=== PATIENT | male | born 2000 | race Caucasian/White ===

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

== ENCOUNTER 2024-06-14 07:28 | Emergency (ER) | payer MEDICAID ==
[~2024-06-14] VITALS: Ht 175.3 cm; Wt 72.6 kg
[2024-06-14 07:35] VITALS: BP 145/95; PULSE 75; RESP 18; TEMP 98.8; O2SAT 97
[2024-06-14] MEDS: NACL 0.9% 1,000 ML IV SCH (08:01)
[2024-06-14] MEDS: ONDANSETRON 4 MG/2 ML VIAL IVP ONE ×2 (08:02→09:30)
[2024-06-14] MEDS: FAMOTIDINE 20 MG/2 ML VIAL IVP ONE (08:02)
[2024-06-14 08:18] LABS: APPEARANCE,URINE CLEAR (CLEAR); BILIRUBIN,URINE 1+ (NEGATIVE); BLOOD, URINE NEGATIVE (NEGATIVE); COLOR,URINE YELLOW (YELLOW); LEUKOCYTE ESTERASE ,URINE NEGATIVE (NEGATIVE); NITRITE, URINE NEGATIVE (NEGATIVE); PROTEIN,URINE NEGATIVE (NEGATIVE); UGLUCOSE NEGATIVE (NEGATIVE)
[2024-06-14 08:31] LABS: BACTERIA,URINE FEW /HPF (None Seen); RBC,URINE 0-5 /HPF (0-5); SQUAMOUS EPITHELIAL CELL,UR 0-3 (FEW) /LPF (0-3 (FEW)); WBC,URINE 0-5 /HPF (0-5)
[2024-06-14 08:32] LABS: ICTOTEST NEGATIVE (NEGATIVE)
[2024-06-14 08:42] LABS: BASOPHILS % (AUTO) 0.4 % (0.0-2.0); EOSINOPHILS # (AUTO) 0.1 K/uL (0-0.4); EOSINOPHILS % (AUTO) 0.7 % (0.0-4.0); HEMATOCRIT 53.8 % (36-52); HEMOGLOBIN 18.8 g/dL (12.0-18.0); LYMPHOCYTES # (AUTO) 1.4 K/uL (2.0-11.5); LYMPHOCYTES % (AUTO) 10.7 % (20.5-51.1); MEAN CORPUSCULAR HEMOGLOBIN 30 pg (27-31); MEAN CORPUSCULAR HGB CONC 35 g/dL (33-37); MEAN CORPUSCULAR VOLUME 84.8 fL (80-94); MONOCYTES % (AUTO) 7.8 % (1.7-9.3); NEUTROPHILS # (AUTO) 10.6 K/uL (1.8-7.7); NEUTROPHILS % (AUTO) 80.4 % (42.2-75.2); PLATELET COUNT (AUTO) 344 K/uL (140-450); RED BLOOD CELL COUNT(AUTO) 6.34 MIL/uL (4.20-6.10); RED CELL DISTRIBUTION WIDTH 12.5 % (11.6-13.7); WHITE BLOOD COUNT (AUTO) 13.2 K/uL (4.8-10.8)
[2024-06-14 09:27] LABS: ANION GAP 12.7 (8-16); CALCIUM 9.3 mg/dL (8.5-10.1); CARBON DIOXIDE 31.6 mmol/L (21-32); CREATININE 1.1 mg/dL (0.6-1.3); POTASSIUM 3.3 mmol/L (3.5-5.1)
[2024-06-14] MEDS: NACL 0.9% 1,000 ML IV ONE (09:29)
[2024-06-14 09:33] LABS: ALBUMIN 4.3 g/dL (3.4-5.0); BILIRUBIN,DIRECT 0.3 mg/dL (0.0-0.3); TOTAL BILIRUBIN 1.1 mg/dL (0.0-1.0)
[2024-06-14] MEDS ORDERED: ONDA-188 PO (10:38)
[2024-06-14] MEDS ORDERED: FAMO-92 PO (10:38)
[2024-06-14] MEDS: PROCHLORPERAZINE 10 MG/2 ML VIAL IVP ONE (10:58)
[2024-06-14 11:40] VITALS: BP 116/69; PULSE 77; RESP 18; TEMP 99; O2SAT 98
== END 2024-06-14 11:40 | disposition home or self-care (01) ==
LOC: MED 07:28
DX: K29.70 Gastritis, unspecified, without bleeding (principal); R53.1 Weakness; R03.0 Elevated blood-pressure reading, without diagnosis of hypertension; Z79.899 Other long term (current) drug therapy
CPT/HCPCS: 36415; 80048; 80076; 81001; 83690; 85025; 96361; 96374; 96375; 96376; 99284; J0780; J2405; J3490; J7030

== ENCOUNTER 2024-06-19 08:59 | Emergency (ER) | payer MEDICAID ==
[~2024-06-19] VITALS: Ht 175.3 cm; Wt 68.0 kg
[~2024-06-19 08:59] MED LIST: FAMO-92 PO; ONDA-188 PO
[2024-06-19 09:17] VITALS: BP 117/80; PULSE 88; RESP 18; TEMP 98.1
[2024-06-19] MEDS: NACL 0.9% 1,000 ML IV ONE (09:59)
[2024-06-19] MEDS: ONDANSETRON 4 MG/2 ML VIAL IVP ONE (10:00)
[2024-06-19 10:19] LABS: BASOPHILS % (AUTO) 0.3 % (0.0-2.0); EOSINOPHILS % (AUTO) 0.2 % (0.0-4.0); HEMOGLOBIN 18.9 g/dL (12.0-18.0); LYMPHOCYTES # (AUTO) 1.2 K/uL (2.0-11.5); MEAN CORPUSCULAR HEMOGLOBIN 30 pg (27-31); MEAN CORPUSCULAR HGB CONC 34 g/dL (33-37); MEAN CORPUSCULAR VOLUME 86.4 fL (80-94); MONOCYTES # (AUTO) 0.9 K/uL (0.8-1.0); MONOCYTES % (AUTO) 7.5 % (1.7-9.3); NEUTROPHILS # (AUTO) 10.2 K/uL (1.8-7.7); PLATELET COUNT (AUTO) 345 K/uL (140-450); RED BLOOD CELL COUNT(AUTO) 6.37 MIL/uL (4.20-6.10); RED CELL DISTRIBUTION WIDTH 12.5 % (11.6-13.7); WHITE BLOOD COUNT (AUTO) 12.5 K/uL (4.8-10.8)
[2024-06-19 10:42] LABS: ANION GAP 15.9 (8-16); CALCIUM 9.3 mg/dL (8.5-10.1); CARBON DIOXIDE 28.9 mmol/L (21-32); CREATININE 1.2 mg/dL (0.6-1.3); POTASSIUM 3.8 mmol/L (3.5-5.1)
[2024-06-19 10:49] LABS: ALBUMIN 4.5 g/dL (3.4-5.0); BILIRUBIN,DIRECT 0.2 mg/dL (0.0-0.3); MAGNESIUM 2.3 mg/dL (1.8-2.4); PHOSPHORUS 3.6 mg/dL (2.5-4.9); TOTAL PROTEIN, SERUM 8.4 g/dL (6.4-8.2)
[2024-06-19] MEDS: PROCHLORPERAZINE 10 MG/2 ML VIAL IVP ONE (11:41)
[2024-06-19] MEDS: diphenhydrAMINE 50 MG/ML VIAL IVP ONE (11:44)
[2024-06-19] MEDS ORDERED: METO-485 PO (13:30)
[2024-06-19 13:39] VITALS: BP 104/70; PULSE 85; RESP 16; TEMP 98.1; O2SAT 100
== END 2024-06-19 13:39 | disposition home or self-care (01) ==
LOC: MED 08:59
DX: R11.2 Nausea with vomiting, unspecified (principal); F12.90 Cannabis use, unspecified, uncomplicated; K21.9 Gastro-esophageal reflux disease without esophagitis; Z79.899 Other long term (current) drug therapy
CPT/HCPCS: 36415; 80048; 80076; 83690; 83735; 84100; 85025; 96361; 96374; 96375; 99284; J0780; J1200; J2405; J7030

== ENCOUNTER 2024-06-24 08:36 | Emergency (ER) | payer MEDICAID ==
[~2024-06-24] VITALS: Ht 175.3 cm; Wt 68.0 kg
[~2024-06-24 08:36] MED LIST changes: +METO-485 PO
[2024-06-24 08:40] VITALS: BP 175/73; PULSE 101; RESP 20; TEMP 98.6; O2SAT 99
[2024-06-24 09:08] LABS: APPEARANCE,URINE CLEAR (CLEAR); BILIRUBIN,URINE NEGATIVE (NEGATIVE); BLOOD, URINE NEGATIVE (NEGATIVE); COLOR,URINE YELLOW (YELLOW); LEUKOCYTE ESTERASE ,URINE NEGATIVE (NEGATIVE); NITRITE, URINE NEGATIVE (NEGATIVE); PH,URINE 7.5 (5.0-9.0); PROTEIN,URINE NEGATIVE (NEGATIVE); UGLUCOSE NEGATIVE (NEGATIVE)
[2024-06-24 09:16] VITALS: O2SAT 99
[2024-06-24 09:16] LABS: AMPHETAMINE, URINE NEGATIVE ng/ml (NEG <=1000); BARBITURATE, URINE NEGATIVE ng/ml (NEG <=200); BENZODIAZEPINE, URINE NEGATIVE ng/mL (NEG <=200); CANNABINOID, URINE POSITIVE ng/mL (NEG <=50); COCAINE, URINE NEGATIVE ng/mL (NEG <=300); OPIATE, URINE NEGATIVE ng/mL (NEG <=2000); PHENCYCLIDINE SCREEN,URINE NEGATIVE ng/mL (NEG <=25)
[2024-06-24] MEDS ORDERED: ONDANSETRON 4 MG/2 ML VIAL ONE (09:19)
[2024-06-24] MEDS: ONDANSETRON 4 MG/2 ML VIAL IVP ONE (09:22)
[2024-06-24] MEDS ORDERED: HALOPERIDOL IM 5 MG/ML VIAL ONE (09:22)
[2024-06-24] MEDS: HALOPERIDOL IM 5 MG/ML VIAL IM ONE (09:27)
[2024-06-24] MEDS: NACL 0.9% 1,000 ML IV ONE (09:28)
[2024-06-24 09:39] LABS: BASOPHILS % (AUTO) 0.4 % (0.0-2.0); EOSINOPHILS % (AUTO) 0.4 % (0.0-4.0); HEMATOCRIT 51.7 % (36-52); HEMOGLOBIN 18.1 g/dL (12.0-18.0); LYMPHOCYTES # (AUTO) 1.9 K/uL (2.0-11.5); LYMPHOCYTES % (AUTO) 21.9 % (20.5-51.1); MEAN CORPUSCULAR HEMOGLOBIN 30 pg (27-31); MEAN CORPUSCULAR HGB CONC 35 g/dL (33-37); MEAN CORPUSCULAR VOLUME 85.4 fL (80-94); MONOCYTES # (AUTO) 1.2 K/uL (0.8-1.0); MONOCYTES % (AUTO) 14.5 % (1.7-9.3); NEUTROPHILS # (AUTO) 5.3 K/uL (1.8-7.7); NEUTROPHILS % (AUTO) 62.8 % (42.2-75.2); PLATELET COUNT (AUTO) 308 K/uL (140-450); RED BLOOD CELL COUNT(AUTO) 6.06 MIL/uL (4.20-6.10); RED CELL DISTRIBUTION WIDTH 12.4 % (11.6-13.7); WHITE BLOOD COUNT (AUTO) 8.5 K/uL (4.8-10.8)
[2024-06-24 09:55] LABS: CALCIUM 9.3 mg/dL (8.5-10.1); CARBON DIOXIDE 31.5 mmol/L (21-32); POTASSIUM 3.5 mmol/L (3.5-5.1)
[2024-06-24 10:01] LABS: ALBUMIN 4.5 g/dL (3.4-5.0); BILIRUBIN,DIRECT 0.2 mg/dL (0.0-0.3); TOTAL BILIRUBIN 0.9 mg/dL (0.0-1.0); TOTAL PROTEIN, SERUM 7.7 g/dL (6.4-8.2)
[2024-06-24] MEDS ORDERED: METO-485 PO (11:29)
[2024-06-24 11:45] VITALS: BP 142/80; PULSE 88; RESP 20; TEMP 98.6; O2SAT 99
== END 2024-06-24 11:48 | disposition home or self-care (01) ==
LOC: MED 08:36
DX: R11.2 Nausea with vomiting, unspecified (principal); R10.13 Epigastric pain; K21.9 Gastro-esophageal reflux disease without esophagitis; F12.90 Cannabis use, unspecified, uncomplicated; Z79.899 Other long term (current) drug therapy
CPT/HCPCS: 36415; 80048; 80076; 80305; 81003; 83690; 85025; 96372; 99283; J1630; J7030; J2405